=== PATIENT | male | born 1970 | race Caucasian/White ===

== ENCOUNTER 2020-05-02 09:34 | Emergency (ER) | payer BC ==
[~2020-05-02] VITALS: Ht 175.3 cm; Wt 124.1 kg
[~2020-05-02 09:34] MED LIST: CIPRO 500MG TA500 MG PO; DEPO IJ; METRONIDAZOLE500 MG PO; PRILOSEC 20MG20 MG PO; SEPTRA DS 8001 TAB PO; TESTOSTER IJ; TYLENOL 325MG325 MG PO; ZANTAC 150150 MG PO; cystex
[2020-05-02 09:37] VITALS: TEMP 98.5
[2020-05-02] MEDS ORDERED: CLEOCIN HCL300 MG PO (11:56)
[2020-05-02 12:00] VITALS: BP 125/79; PULSE 69
== END 2020-05-02 12:04 | disposition home or self-care (01) ==
LOC: COL.ER 09:34
DX: S62.522B Displaced fracture of distal phalanx of left thumb, initial encounter for open fracture (principal); S61.012A Laceration without foreign body of left thumb without damage to nail, initial encounter; Z87.891 Personal history of nicotine dependence; W27.0XXA Contact with workbench tool, initial encounter; Y92.009 Unspecified place in unspecified non-institutional (private) residence as the place of occurrence of the external cause

== ENCOUNTER → 2022-03-19 | Outpatient (CLI) | payer BC ==
[~2022-03-19] MED LIST changes: +CLEOCIN HCL300 MG PO
== END ==
LOC: COL.VAS 09:45
DX: S83.241A Other tear of medial meniscus, current injury, right knee, initial encounter (principal)